=== PATIENT | female | born 1985 | race Caucasian/White ===

== ENCOUNTER 2016-11-22 09:26 | Day surgery (SDC) | payer OTHER ==
[~2016-11-22 09:26] MED LIST: RINGERS SOLUTION,LACTATED 1,000 ML IV PRN; ceFAZolin SODIUM 1 GM VIAL IV PRN
--- OUTSIDE RECORDS SUMMARY | 2016-11-22 09:30 | XMS REPORT | Continuity of Care Document ---
:1985 Author Organization [facility] ([facility]) [place] [address] Phone [phone] Care Team Providers Name Role Phone Provider, No-Primary Care Primary Care Provider Unavailable Source Comments This disclosure is being made pursuant to the Care Everywhere program, applicable federal and state laws, and may not contain all informaitonavailable regarding this patient.[facility] ([facility]) Active Allergies and Adverse Reactions No Active Allergies Current Medications Not on file Active Problems Problem Noted Date Lumbago 08/25/2002 Social History Tobacco Use Types Packs/Day Years Used Date Never Assessed Last Filed Vital Signs Vital Sign Reading Time Taken Blood Pressure - - Pulse - - Temperature - - Respiratory Rate - - Height 1.64 m (5' 4.56") 08/25/2002 8:33 AM [employer] Weight 100.998 kg (222 lb 10.6 oz) 08/25/2002 8:33 AM [employer] Body Mass Index 37.55 08/25/2002 8:33 AM ELEVATOR CON[employer] Oxygen Saturation - - Plan of Care Health Maintenance Due Date Last Done Comments Hepatitis B Vaccine (1 of 3 - Primary Series) 1986 Tdap Vaccine 1997 Lipid Disorder Screening 2004 MMR Vaccine 2004 Td Vaccine 2004 Varicella Vaccine (1 of 2 - Adult - No Evidence of 2004 Immunity) Cervical Cancer Screening 2016 Influenza Vaccine: Seasonal (#1) 03/12/2016 Results from Last 3 Months Not on file
[2016-11-22] MEDS ORDERED: RINGERS SOLUTION,LACTATED 1,000 ML IV ONE (09:55)
[2016-11-22] MEDS ORDERED: BUPIVACAINE HCL 50 ML VIAL IJ ONE (12:20)
[2016-11-22] MEDS ORDERED: RINGERS SOLUTION,LACTATED 1,000 ML IV PRN (13:02)
[2016-11-22] MEDS ORDERED: oxyCODONE HCL/ACETAMINOPHEN 1 TAB TABLET PO PRN (13:03)
[2016-11-22] MEDS ORDERED: HYDROmorphone HCL 2 MG/ML VIAL IV PRN (13:04)
[2016-11-22 13:42] VITALS: BP 144/84
--- NOTE | 2016-11-22 14:05 | OR ---
Operative Report - Dictated Report Narrative: Date: 11/22/2016 Physician: Sudhir Sanchez M.D. Brake Assembler: Rian Tyler PA-C Preoperative diagnosis: Left wrist mass Postoperative diagnosis: Left dorsal wrist ganglion cyst Procedure: Excision of ganglion cyst left dorsal wrist Anesthesia: MAC plus local Complications: None Estimated blood loss: Minimal Tourniquet time: 23 Minutes at 250 mmHg Specimens: None Retained implants: None Drains: None Indications: Niesha Is a 31 year-old female who has been followed in my clinic with complaints of a recurrent mass over the dorsum of her left wrist. She had popped it several times in the past by hitting it with a book and it has recurred several times and steadily grown in size. Physical exam was consistent with a left dorsal wrist ganglion. Based on its increasing size, multiple recurrences, and increasing symptoms of pain and irritation, I offered her excision of the ganglion. The risks, benefits, and alternatives were discussed in clinic. The risks being bleeding, infection, nerve, tendon, blood vessel injury, persistent pain, wound complications, and recurrence. Consent was obtained in the clinic. Procedure: After marking the correct extremity in the preoperative holding area, a timeout was performed in the operating room. IV antibiotics consisting of 2 g of Ancef were administered prior to the procedure. A well-padded tourniquet was applied to the operative upper arm. The arm was exsanguinated and the tourniquet was inflated to 250 mmHg. 0.5% Marcaine without epinephrine was infused into the projected incision site. Using Loupe magnification, a longitudinal incision was made approximately 2 cm in length directly over the mass. Combination of blunt dissection with tenotomy scissors and electrocautery was carried down through the subcutaneous tissue to the level of the cyst. The cyst was circumferentially dissected away from the surrounding tissue using tenotomy scissors and electrocautery. The cyst was consistent in appearance with a ganglion and was full of the expected gelatinous material. The stalk of the cyst was followed all the way down to the dorsal wrist capsule. The stalk was ligated and the mass was removed. The remaining rent in the dorsal wrist capsule was closed in an interrupted fashion using 4-0 Vicryl suture. At this point we felt we had removed the cyst in its entirety and the wounds were thoroughly irrigated with saline. Tourniquet was deflated and hemostasis was obtained with pressure as well as bipolar cautery. Once bleeding had resolved and there was no excessive bleeding, the wounds were closed with interrupted 4- 0 nylon. Xeroform, 4 x 4's, soft roll, and a well-padded volar short arm wrist splint was applied. The patient was awoken and transferred to the post- anesthesia care unit in stable condition. All sponge, needle, blade, and instrument counts were correct prior to closing the wounds. Additional 0.5% Marcaine without epinephrine was infused into the skin edges for pain control.
== END 2016-11-22 09:27 | disposition home or self-care (01) ==
LOC: AMB 09:26
PROVIDERS: ATTEND Orthopaedic Surgery
PROC: 0LB60ZZ Excision of Left Lower Arm and Wrist Tendon, Open Approach (ICD-10-PCS; principal; 2016-11-22 11:25)
DX: M67.432 Ganglion, left wrist (principal); K58.9 Irritable bowel syndrome, unspecified; E66.01 Morbid (severe) obesity due to excess calories; Z68.41 Body mass index [BMI] 40.0-44.9, adult; Z87.891 Personal history of nicotine dependence